=== PATIENT | male | born 1965 | race Caucasian/White ===

== ENCOUNTER 2019-11-29 11:12 | Inpatient (IN) | payer SELFPAY ==
[2019-11-29 11:33] LABS: ABSOLUTE BASOPHILS # (AUTO) 0.2 10^3/uL (0.0-0.2); ABSOLUTE LYMPHOCYTES (AUTO) 1.8 10^3/uL (0.5-4.7); ABSOLUTE MONOCYTES (AUTO) 0.8 10^3/uL (0.1-1.4); ABSOLUTE NEUT (AUTO) 12.6 10^3/uL (1.7-8.2); EOSINOPHILS % (AUTO) 0.2 % (0-6); HEMATOCRIT 45.6 % (37.9-51.0); HEMOGLOBIN 15.8 g/dL (13.5-17.0); LYMPHOCYTES % (AUTO) 11.9 % (13-45); MEAN CORPUSCULAR HEMOGLOBIN 30.3 pg (27.0-33.4); MEAN CORPUSCULAR HGB CONC 34.8 g/dL (32.0-36.0); MEAN CORPUSCULAR VOLUME 87 fl (80-97); MONOCYTES % (AUTO) 5.3 % (3-13); PLATELET COUNT 321 10^3/uL (150-450); RED BLOOD COUNT 5.23 10^6/uL (4.35-5.55); RED CELL DISTRIBUTION WIDTH 14.5 % (11.5-14.0); SEGMENTED NEUTROPHILS % (AUTO) 81.6 % (42-78); TOTAL CELLS COUNTED % (AUTO) 100 %; WHITE BLOOD COUNT 15.4 10^3/uL (4.0-10.5)
[2019-11-29] MEDS ORDERED: ONDANSETRON HCL INJ/PF 4 MG/2 ML SDV IV ONE (11:35)
[2019-11-29] MEDS ORDERED: RINGERS SOLUTION,LACTATED 1,000 ML IV ONE ×2 (11:58→16:01)
[2019-11-29] MEDS ORDERED: DICYCLOMINE HCL INJ 20 MG/2 ML AMPULE IM ONE (11:58)
--- NOTE | 2019-11-29 12:03 | ER Document Report ---
ED General - General Chief Complaint: Abdominal Pain Stated Complaint: ABDOMINAL PAIN Time Seen by Provider: 11/29/19 11:29 Primary Care Provider: LIZA LIEBERMAN MD [Primary Care Provider] - Follow up as needed Notes: 54-year-old male presents emergency department stating that he thinks he has a bowel obstruction. Patient has never had 1 of these before but he states he has not had a bowel movement since Monday. Patient states that he has developed a cramping abdominal pain over the past few days, states that he did have 2 very small little pellets of stool this morning but aside from that states that he has not had any bowel movement since Monday. States he started vomiting this morning after he took a Dulcolax. Patient does admit a history of constipation but never this badly. - Related Data Allergies/Adverse Reactions: levofloxacin [From Levaquin] Allergy (Verified 11/29/19 11:42) Past Medical History - General Information source: Patient - Social History Smoking Status: Never Smoker Chew tobacco use (# tins/day): No Frequency of alcohol use: Occasional - "To keep his kidneys flushed" Drug Abuse: None Family History: Reviewed & Not Pertinent Patient has suicidal ideation: No Patient has homicidal ideation: No Past Surgical History: Reports: Hx Abdominal Surgery Review of Systems - Review of Systems Constitutional: No symptoms reported Gastrointestinal: See HPI, Vomiting, Constipation. denies: Blood streaked bowels -: Yes All other systems reviewed and negative Physical Exam - Vital signs Vitals: Resp 29 H 11/29/19 11:20 Interpretation: Tachypneic - Notes Notes: GENERAL: Alert, interacts well. Intermittent leave vomiting clear yellow liquid, no blood, non-feculent. HEAD: Normocephalic, atraumatic EYES: Pupils equal, round and reactive to light, extraocular movements intact. ENT: Oral mucosa moist, tongue midline. NECK: Full range of motion, supple, trachea midline. LUNGS: Clear to auscultation bilaterally, no wheezes, rales or rhonchi, no respiratory distress. HEART: Regular rate and rhythm, no murmurs, gallops, rubs. ABDOMEN: Soft, nontender, nondistended, bowel sounds present in all 4 quadrants. EXTREMITIES: Moves all 4 extremities spontaneously, no edema, radial and dorsalis pedis pulses 2/4 bilaterally. No cyanosis. NEUROLOGICAL: Alert and oriented x3, normal speech. PSYCH: Anxious. SKIN: Warm, Dry, normal turgor, no rashes or lesions noted. Course - Re-evaluation Re-evalutation: 11/29/19 13:29 CBC shows leukocytosis of 15.4, CMP slight low sodium, mildly elevated glucose at 178, flu swabs negative, acute abdominal series per radiology shows what is likely mild ileus. I am still concerned for small bowel obstruction so CT scan of the abdomen and pelvis with IV and oral contrast will be ordered. 11/29/19 16:53 Abdomen/Pelvis CT 11/29/19 00:00 IMPRESSION: 1. Findings as detailed above are consistent with a small bowel obstruction. The point of transition is located in the mid abdomen (image 72 of series 3 and image 37 of series 601). 2. Other findings as detailed above. Acute Abdomen Series 11/29/19 11:57 IMPRESSION: Probable ileus with scattered air-fluid levels. Minimal small- bowel distention. Partial small bowel obstruction or early small bowel obstruction cannot be excluded. No free air. 11/29/19 17:03 NG tube will be paced after lidocaine neb for comfort. 11/29/19 17:39 Discussed the patient with Dr. Connors, he will see the patient. Asked that I speak with the surgeon as well. I did call Dr. Davis's phone who is the surgeon on-call, he is currently in surgery. He will call me back when he is done. - Vital Signs Vital signs: Temp Pulse Resp BP Pulse Ox 97.9 F 19 131/76 H 97 11/29/19 11:24 11/29/19 11:24 11/29/19 11:24 11/29/19 11:24 - Laboratory Result Diagrams: 11/29/19 11:16 11/29/19 11:16 Laboratory results interpreted by me: 11/29/19 11/29/19 11/29/19 11:16 11:16 12:30 WBC 15.4 H RDW 14.5 H Lymph % (Auto) 11.9 L Absolute Neuts (auto) 12.6 H Seg Neutrophils % 81.6 H Sodium 135.8 L BUN 22 H Glucose 178 H Calcium 10.6 H Urine Protein 100 H Discharge - Discharge Clinical Impression: Small bowel obstruction due to adhesions Condition: Good Disposition: ADMITTED INPATIENT Admitting Provider: Elia (Hospitalist) Unit Admitted: Telemetry Referrals: LIZA LIEBERMAN MD [Primary Care Provider] - Follow up as needed
[2019-11-29 12:50] LABS: ALBUMIN 4.4 g/dL (3.5-5.0); ALKALINE PHOSPHATASE 53 U/L (38-126); ANION GAP 10 (5-19); ASPARTATE AMINO TRANSFERASE 30 U/L (17-59); BILIRUBIN,TOTAL 0.5 mg/dL (0.2-1.3); BLOOD UREA NITROGEN 22 mg/dL (7-20); CALCIUM 10.6 mg/dL (8.4-10.2); CARBON DIOXIDE 23 mmol/L (22-30); CHLORIDE 103 mmol/L (98-107); GLUCOSE 178 mg/dL (75-110); POTASSIUM 4.5 mmol/L (3.6-5.0); TOTAL PROTEIN 7.6 g/dL (6.3-8.2)
[2019-11-29 12:55] LABS: A TYPE INFLUENZA AG NEGATIVE (NEGATIVE); B INFLUENZA AG NEGATIVE (NEGATIVE)
--- NOTE | 2019-11-29 13:02 | RADIOLOGY REPORT (SQ) ---
EXAM DESCRIPTION: ACUTE ABDOMEN SERIES COMPLETED DATE/TIME: 11/29/2019 12:50 pm REASON FOR STUDY: no BMx5 days, + vomiting COMPARISON: None. NUMBER OF VIEWS: Three views. TECHNIQUE: Frontal chest, supine abdomen and upright/decubitus abdomen radiographic images acquired. LIMITATIONS: None. FINDINGS: CHEST: Lungs clear of infiltrates. FREE AIR: None. No abnormal gas collections. BOWEL GAS PATTERN: There are scattered air-fluid levels. There is no significant small-bowel distent ion findings most likely represent ileus although early small bowel obstruction cannot be excluded. CALCIFICATIONS: No suspicious calcifications. HARDWARE: None in the abdomen. SOFT TISSUES: No gross mass or suggestion of organomegaly. BONES: No acute fracture. No worrisome bone lesions. OTHER: No other significant finding. IMPRESSION: Probable ileus with scattered air-fluid levels. Minimal small-bowel distention. Partia l small bowel obstruction or early small bowel obstruction cannot be excluded. No free air. TECHNICAL DOCUMENTATION: JOB ID: [id number] 2010 [employer]- All Rights Reserved Reading location - IP/workstation name: [email or web address]
[2019-11-29] MEDS ORDERED: KETOROLAC TROMETHAMINE INJ/PF 30 MG/1 ML SDV IV ONE (14:38)
[2019-11-29 14:46] LABS: APPEARANCE,URINE CLOUDY; BILIRUBIN,URINE NEGATIVE (NEGATIVE); CALCIUM OXALATE CRYSTALS,URINE FEW /HPF; COLOR,URINE AMBER; GLUCOSE, URINE NEGATIVE (NEGATIVE); KETONES,URINE NEGATIVE (NEGATIVE); LEUKOCYTE ESTERASE,URINE NEGATIVE (NEGATIVE); NITRITE,URINE NEGATIVE (NEGATIVE); PROTEIN,URINE 100 mg/dL (NEGATIVE); URINE SPECIFIC GRAVITY 1.018; UROBILINOGEN,URINE NEGATIVE mg/dL (<2.0)
--- NOTE | 2019-11-29 16:42 | RADIOLOGY REPORT (SQ) ---
EXAM DESCRIPTION: CT ABD/PELVIS WITH IV ORAL IMAGES COMPLETED DATE/TIME: 11/29/2019 4:17 pm REASON FOR STUDY: N/V, constipation, possible SBO. COMPARISON: None. TECHNIQUE: CT scan of the abdomen and pelvis performed using helical scanning technique with dynamic intravenous contrast injection. No oral contrast. Images reviewed with lung, soft tissue, and bone windows. Reconstructed coronal and sagittal MPR images reviewed. Delayed images for evaluation of the urinary system also acquired. All images stored on PACS. All CT scanners at this facility use dose modulation, iterative reconstruction, and/or weight based d osing when appropriate to reduce radiation dose to as low as reasonably achievable (ALARA). [facility]: Dose Right [facility]: CareDose [facility]: Dose Right [facility]: Teradose 4D [facility]: [place] CONTRAST TYPE AND DOSE: 100 mL Omnipaque 350- low osmolar. RENAL FUNCTION: Creatinine 1.18 mg/dl RADIATION DOSE: DLP 1663.01 mGy cm LIMITATIONS: None. FINDINGS: LOWER CHEST: There is severe atherosclerotic calcification of the coronary arteries. Ther e is no pericardial effusion, pleural effusion or basilar consolidation. LIVER: The subcentimeter focus of hyperenhancement in the hepatic dome (image 21 of series 3) could r epresent a vascular shunt or a flash filling hemangioma. The portal veins are patent. There is no h epatic mass. SPLEEN: The spleen is surgically absent. There is a splenule posterior to the pancreas that measures less than 10 mm in diameter. PANCREAS: No acute abnormality of the pancreas. GALLBLADDER: No abnormality that is apparent on CT. ADRENAL GLANDS: The mild nodular enlargement of the adrenal glands is nonspecific and could represen t adenomatous hyperplasia. RIGHT KIDNEY AND URETER: Cortical cysts that measure up to 2.5 x 2 cm. There is no solid mass, hydro nephrosis, nephrolithiasis, hydroureter or ureterolithiasis. LEFT KIDNEY AND URETER: 4 mm calculus within an upper pole calyx. There is no solid mass, hydronephr osis, hydroureter or ureterolithiasis. AORTA AND VESSELS: No aneurysm of the abdominal aorta. RETROPERITONEUM: No retroperitoneal adenopathy, hemorrhage or mass. BOWEL AND PERITONEAL CAVITY: There are several fluid-filled dilated loops of proximal small-bowel delmer t measure up to 3.6 cm in diameter with an abrupt transition between the dilated and nondilated bowel present in the mid abdomen (image 72 of series 3 and image 37 of series 601); at the point of transi tion, the bowel wall is abnormally thickened and there is stranding of the perienteric fat and locali zed ascites. In addition, there is fecalization of the bowel contents proximal to the point of trans ition consistent with delayed transit. There is no pneumatosis or free intraperitoneal air. The cecum and large bowel are normal in caliber. There is colonic diverticulosis without diverticuli tis. APPENDIX: Normal. PELVIS: The prostate gland is enlarged and heterogeneous. There is no abnormality of the urinary willi dder. ABDOMINAL WALL: There are postoperative findings in the ventral abdomen. BONES: No acute fracture or osseous lesion. OTHER: No other finding. IMPRESSION: 1. Findings as detailed above are consistent with a small bowel obstruction. The point of transition is located in the mid abdomen (image 72 of series 3 and image 37 of series 601). 2. Other findings as detailed above. TECHNICAL DOCUMENTATION: JOB ID: [id number] Quality ID # [id number]: Final reports with documentation of one or more dose reduction techniques (e.g., Au tomated exposure control, adjustment of the mA and/or kV according to patient size, use of iterative reconstruction technique) 2010 [employer] All Rights Reserved Reading location - IP/workstation name: [email or web address]
[2019-11-29] MEDS ORDERED: LIDOCAINE 2% INJ-PF (20 MG/ML) 10 ML AMPUL NEB ONE (17:02)
[2019-11-29] MEDS ORDERED: ONDANSETRON HCL INJ/PF 4 MG/2 ML SDV IV PRN (17:41)
[2019-11-29] MEDS ORDERED: ACETAMINOPHEN 650 MG SUPP.RECT PR PRN (17:41)
[2019-11-29] MEDS ORDERED: MORPHINE SULFATE 10 MG/ML INJ IV PRN (17:45)
[2019-11-29] MEDS ORDERED: DEXTROSE 50%-WATER 25 GM/50 ML DISP.SYRIN IV PRN ×2 (17:46)
[2019-11-29] MEDS ORDERED: DEXTROSE 40% GEL 15 GM TUBE PO PRN ×2 (17:46)
[2019-11-29] MEDS ORDERED: GLUCAGON,HUMAN RECOMB 1 MG INJ IM PRN (17:46)
--- NOTE | 2019-11-29 17:56 | PDOC H&P ---
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 He does not have any bowel movement for the last couple of days and he has history of constipation. Came to the emergency room with above complaints in the emergency room CT scan was done found to have a small bowel obstruction. Medical consult was called for admission and a surgical consult will be requested by the ER physician. Past Medical History EENT Medical History: Reports: None Neurological Medical History: Reports: None Endocrine Medical History: Reports: Diabetes Mellitus Type 2 Malignancy Medical History: Reports: Other - Hodgkin's lymphoma GI Medical History: Reports: None Psychiatric Medical History: Reports: None Traumatic Medical History: Reports: None Hematology: Reports: None Infectious Medical History: Reports: None Past Surgical History Past Surgical History: Reports: Splenectomy, Other - Splenectomy Social History Smoking Status: Never Smoker Electronic Cigarette use?: No Frequency of Alcohol Use: Rare Hx Recreational Drug Use: No Hx Prescription Drug Abuse: No - Advance Directive Resuscitation Status: Full Code Family History Family History: Reviewed & Not Pertinent Parental Family History Reviewed: Yes - Hypertension diabetes mellitus Children Family History Reviewed: Yes Sibling(s) Family History Reviewed.: Yes Medication/Allergy Allergies/Adverse Reactions: levofloxacin [From Levaquin] Allergy (Verified 11/29/19 11:42) Review of Systems Constitutional: ABSENT: fatigue, fever(s), headache(s), weakness Eyes: ABSENT: visual disturbances Ears: ABSENT: hearing changes Nose, Mouth, and Throat: ABSENT: sore throat Cardiovascular: ABSENT: dyspnea on exertion, orthropnea, palpitations Respiratory: ABSENT: dyspnea, hemoptysis Gastrointestinal: PRESENT: abdominal pain, constipation, nausea, vomiting. ABSENT: heartburn Genitourinary: ABSENT: dysuria, hematuria Musculoskeletal: ABSENT: joint swelling Integumentary: ABSENT: rash, wounds Neurological: ABSENT: abnormal gait, abnormal speech, confusion, dizziness, focal weakness, syncope Psychiatric: ABSENT: anxiety, depression, homidical ideation, suicidal ideation Physical Exam Vital Signs: Temp Pulse Resp BP Pulse Ox 97.9 F 19 131/76 H 97 11/29/19 11:24 11/29/19 11:24 11/29/19 11:24 11/29/19 11:24 Intake & Output 11/28/19 11/29/19 11/30/19 06:59 06:59 06:59 Intake Total 1000 Balance 1000 Weight 97.522 kg General appearance: PRESENT: mild distress, well-developed Head exam: PRESENT: atraumatic Eye exam: PRESENT: PERRLA Ear exam: PRESENT: normal external ear exam Mouth exam: PRESENT: neck supple Neck exam: ABSENT: carotid bruit, JVD, lymphadenopathy, thyromegaly Respiratory exam: PRESENT: decreased breath sounds Cardiovascular exam: PRESENT: systolic murmur, tachycardia GI/Abdominal exam: PRESENT: hyperactive bowel sounds, tenderness, other - Previous surgical scar over the abdomen. ABSENT: guarding, rigid Rectal exam: PRESENT: deferred Neurological exam: PRESENT: alert, awake, oriented to person, oriented to place, oriented to time, oriented to situation, CN II-XII grossly intact. ABSENT: motor sensory deficit Psychiatric exam: PRESENT: appropriate affect, normal mood. ABSENT: homicidal ideation, suicidal ideation Results Laboratory Results: 11/29/19 11:16 11/29/19 11:16 11/29/19 11/29/19 11/29/19 11:16 11:16 12:30 WBC 15.4 H RBC 5.23 Hgb 15.8 Hct 45.6 MCV 87 MCH 30.3 MCHC 34.8 RDW 14.5 H Plt Count 321 Seg Neutrophils % 81.6 H Sodium 135.8 L Potassium 4.5 Chloride 103 Carbon Dioxide 23 Anion Gap 10 BUN 22 H Creatinine 1.18 Est GFR ( Amer) > 60 Glucose 178 H Calcium 10.6 H Total Bilirubin 0.5 AST 30 Alkaline Phosphatase 53 Total Protein 7.6 Albumin 4.4 Lipase 141.8 Urine Color MAN Urine Appearance CLOUDY Urine pH 7.0 Ur Specific [place] 1.018 Urine Protein 100 H Urine Glucose (UA) NEGATIVE Urine Ketones NEGATIVE Urine Blood NEGATIVE Urine Nitrite NEGATIVE Ur Leukocyte Esterase NEGATIVE Urine WBC (Auto) 4 Urine RBC (Auto) 3 Impressions: Abdomen/Pelvis CT 11/29/19 00:00 IMPRESSION: 1. Findings as detailed above are consistent with a small bowel obstruction. The point of transition is located in the mid abdomen (image 72 of series 3 and image 37 of series 601). 2. Other findings as detailed above. Acute Abdomen Series 11/29/19 11:57 IMPRESSION: Probable ileus with scattered air-fluid levels. Minimal small- bowel distention. Partial small bowel obstruction or early small bowel obstruction cannot be excluded. No free air. Assessment and Plan - Diagnosis (1) Small bowel obstruction Is this a current diagnosis for this admission?: Yes Plan: 11/29/2019-patient is going to be admitted to medical floor with telemetry as inpatient with a diagnosis of small bowel obstruction. Dr. Angel closely try to reach Dr. barney but he is in the surgery. pt Will be n.p.o., with NG tube placement. GI prophylaxis and DVT prophylaxis initiated. Started on IV morphine every 4 hours as needed for pain. Daily labs will be requested. (2) HTN (hypertension) Is this a current diagnosis for this admission?: No Plan: 11/29/2019-patient has history of chronic essential hypertension to start him on IV hydralazine 10 mg every 6 hours as needed for systolic blood pressure more than 160. (3) Diabetes Is this a current diagnosis for this admission?: No Plan: 11/29/2019-patient has history of type 2 diabetes mellitus he is n.p.o. at this time started on insulin sliding scale every 6 hours. Hypoglycemia protocol will be implemented. (4) Hodgkin lymphoma Is this a current diagnosis for this admission?: No Plan: 11/29/2019-patient given the history of Hodgkin's lymphoma status post treatment including splenectomy and radiation , in remission. (5) Hypothyroidism Is this a current diagnosis for this admission?: No Plan: 11/29/2019-patient has history of total thyroidectomy causing surgical induced hypothyroidism.
--- NOTE | 2019-11-29 19:05 | PDOC CONSULTATION ---
Consultation Consult Date: 11/29/19 Provider Consulted: VERONICA ROJAS History of Present Illness Admission Date/PCP: LIZA LIEBERMAN MD Patient complains of: Abdominal pain and nausea and vomiting History of Present Illness: ROSEMARY MILLAN is a 54 year old male with history of exploratory laparotomy with splenectomy via large midline incision in his youth for Hodgkin's lymphoma, as well as radiation therapy to neck chest and abdomen, presenting with several day history of constipation followed by crampy abdominal pain in the last couple of days with finally multiple episodes of nausea and vomiting today. Patient has had small bowel movements but feels bloated with nausea and crampy abdomina l pain. No fever. No prior history of bowel obstruction. Past Medical History Cardiac Medical History: Reports: Hyperlipidema, Hypertension EENT Medical History: Reports: None Neurological Medical History: Reports: None Endocrine Medical History: Reports: Diabetes Mellitus Type 2 Malignancy Medical History: Reports: Other - Hodgkin's lymphoma GI Medical History: Reports: None Psychiatric Medical History: Reports: None Traumatic Medical History: Reports: None Hematology: Reports: None Infectious Medical History: Reports: None Past Surgical History Past Surgical History: Reports: Splenectomy, Other - Splenectomy Social History Smoking Status: Never Smoker Electronic Cigarette use?: No Frequency of Alcohol Use: Social Hx Recreational Drug Use: No Hx Prescription Drug Abuse: Yes - Patient does take prescription oxycodone for chronic pain and insomnia. - Advance Directive Resuscitation Status: Full Code Family History Family History: Reviewed & Not Pertinent Parental Family History Reviewed: No Children Family History Reviewed: No Sibling(s) Family History Reviewed.: No Medication/Allergy Home Medications: Fenofibrate Nanocrystallized [Fenofibrate] 145 mg PO QHS 11/29/19 Levothyroxine Sodium [Levoxyl] 88 mcg PO Q6AM 11/29/19 Levothyroxine Sodium [Synthroid 0.1 mg Tablet] 0.1 mg PO Q6AM 11/29/19 Lisinopril 20 mg PO DAILY 11/29/19 Metformin HCl [Glucophage 500 mg Tablet] 1,000 mg PO BIDACBS 11/29/19 Metoprolol Tartrate [Lopressor 25 mg Tablet] 25 mg PO DAILY 11/29/19 Allergies/Adverse Reactions: levofloxacin [From Levaquin] Allergy (Verified 11/29/19 11:42) Review of Systems All systems: reviewed and no additional remarkable complaints except as stated Cardiovascular: PRESENT: other - Patient states that his heart rate always runs high in the low 100s. Gastrointestinal: PRESENT: as per HPI Physical Exam Vital Signs: Temp Pulse Resp BP Pulse Ox 97.9 F 19 131/76 H 97 11/29/19 11:24 11/29/19 11:24 11/29/19 11:24 11/29/19 11:24 Intake & Output 11/28/19 11/29/19 11/30/19 06:59 06:59 06:59 Intake Total 1000 Balance 1000 Weight 97.522 kg General appearance: PRESENT: no acute distress, cooperative Eye exam: PRESENT: conjunctiva pink Respiratory exam: PRESENT: clear to auscultation bharath Cardiovascular exam: PRESENT: tachycardia - With systolic murmur GI/Abdominal exam: PRESENT: other - Soft, distended, nontender to palpation. Long midline abdominal scar that is well-healed with multiple small fascial defects but no evidence of incarceration. High-pitched bowel sounds intermittently. Neurological exam: PRESENT: alert, awake Psychiatric exam: PRESENT: appropriate affect Results Laboratory Results: 11/29/19 11:16 11/29/19 11:16 11/29/19 11/29/19 11/29/19 11:16 11:16 12:30 WBC 15.4 H RBC 5.23 Hgb 15.8 Hct 45.6 MCV 87 MCH 30.3 MCHC 34.8 RDW 14.5 H Plt Count 321 Seg Neutrophils % 81.6 H Sodium 135.8 L Potassium 4.5 Chloride 103 Carbon Dioxide 23 Anion Gap 10 BUN 22 H Creatinine 1.18 Est GFR ( Amer) > 60 Glucose 178 H Calcium 10.6 H Total Bilirubin 0.5 AST 30 Alkaline Phosphatase 53 Total Protein 7.6 Albumin 4.4 Lipase 141.8 Urine Color MAN Urine Appearance CLOUDY Urine pH 7.0 Ur Specific [place] 1.018 Urine Protein 100 H Urine Glucose (UA) NEGATIVE Urine Ketones NEGATIVE Urine Blood NEGATIVE Urine Nitrite NEGATIVE Ur Leukocyte Esterase NEGATIVE Urine WBC (Auto) 4 Urine RBC (Auto) 3 Impressions: Abdomen/Pelvis CT 11/29/19 00:00 IMPRESSION: 1. Findings as detailed above are consistent with a small bowel obstruction. The point of transition is located in the mid abdomen (image 72 of series 3 and image 37 of series 601). 2. Other findings as detailed above. Acute Abdomen Series 11/29/19 11:57 IMPRESSION: Probable ileus with scattered air-fluid levels. Minimal small- bowel distention. Partial small bowel obstruction or early small bowel obstruction cannot be excluded. No free air. Assessment & Plan - Diagnosis (1) Small bowel obstruction Is this a current diagnosis for this admission?: Yes Plan: Small bowel obstruction likely due to adhesive disease. I had a long discussion with the patient concerning the risk and benefits of conservative management versus immediate surgery. I am concerned that he has leukocytosis and tachycardia and a CT scan demonstrating a clear transition point with some inflammatory changes and thickened bowel wall: Thus, I have recommended to the patient surgery. I have also discussed the skin benefits of conservative nonsurgical management but I feel that this latter option is more risky with the above mentioned findings. He understands that with conservative management he incurred the risk of bowel compromise with resultant higher risk of mortality/morbidity. He also understands that there are technical risk involved with surgery including risk of intestinal injury, bleeding, hernia formation, recurrent bowel obstruction. Patient will consider my recommendation for surgery and get back to me. If the chooses conservative management surgical service will follow along with the medical service. Patient pending NG tube decompression. We will check abdominal x-rays in the morning.
--- NOTE | 2019-11-29 19:57 | PDOC PROGRESS REPORT ---
Subjective Progress Note for:: 11/29/19 Reason For Visit: SMALL BOWEL OB Physical Exam Vital Signs: Temp Pulse Resp BP Pulse Ox 97.9 F 26 H 159/96 H 96 11/29/19 11:24 11/29/19 19:33 11/29/19 19:33 11/29/19 19:33 Intake & Output 11/28/19 11/29/19 11/30/19 06:59 06:59 06:59 Intake Total 1999 Balance 1999 Weight 97.522 kg Results Laboratory Results: 11/29/19 11:16 11/29/19 11:16 11/29/19 11/29/19 11/29/19 11:16 11:16 12:30 WBC 15.4 H RBC 5.23 Hgb 15.8 Hct 45.6 MCV 87 MCH 30.3 MCHC 34.8 RDW 14.5 H Plt Count 321 Seg Neutrophils % 81.6 H Sodium 135.8 L Potassium 4.5 Chloride 103 Carbon Dioxide 23 Anion Gap 10 BUN 22 H Creatinine 1.18 Est GFR ( Amer) > 60 Glucose 178 H Calcium 10.6 H Total Bilirubin 0.5 AST 30 Alkaline Phosphatase 53 Total Protein 7.6 Albumin 4.4 Lipase 141.8 Urine Color MAN Urine Appearance CLOUDY Urine pH 7.0 Ur Specific [place] 1.018 Urine Protein 100 H Urine Glucose (UA) NEGATIVE Urine Ketones NEGATIVE Urine Blood NEGATIVE Urine Nitrite NEGATIVE Ur Leukocyte Esterase NEGATIVE Urine WBC (Auto) 4 Urine RBC (Auto) 3 Impressions: Abdomen/Pelvis CT 11/29/19 00:00 IMPRESSION: 1. Findings as detailed above are consistent with a small bowel obstruction. The point of transition is located in the mid abdomen (image 72 of series 3 and image 37 of series 601). 2. Other findings as detailed above. Acute Abdomen Series 11/29/19 11:57 IMPRESSION: Probable ileus with scattered air-fluid levels. Minimal small- bowel distention. Partial small bowel obstruction or early small bowel obstruction cannot be excluded. No free air. Assessment & Plan - Diagnosis (1) Small bowel obstruction Is this a current diagnosis for this admission?: Yes Plan: Patient has decided to undergo surgery. He understands the risk and benefits of the surgery. In light of his persistent tachycardia, leukocytosis, CT scan findings, I believe this is the right decision.
[2019-11-29] MEDS ORDERED: BUPIVACAINE HCL 0.25 % INJ/PF (2.5 MG/1 ML) 30 ML VIAL ONE (21:02)
[2019-11-29] MEDS: HYDRALAZINE HCL INJ/PF 20 MG/1 ML SDV IV SCH (21:18)
[2019-11-29] MEDS ORDERED: FENTANYL CITRATE INJ/PF 250 MCG/5 ML AMPULE ONE (21:38)
[2019-11-29] MEDS ORDERED: ONDANSETRON HCL INJ/PF 4 MG/2 ML SDV ONE (21:38)
[2019-11-29] MEDS ORDERED: PROPOFOL INJ 200 MG/20 ML VIAL IV ONE (21:38)
[2019-11-29] MEDS ORDERED: HYDROMORPHONE HCL INJ/PF 2 MG/ML AMPULE ONE (21:38)
[2019-11-29] MEDS ORDERED: MIDAZOLAM 2 MG/2 ML INJ ONE (21:38)
--- NOTE | 2019-11-29 22:25 | PDOC PROGRESS REPORT ---
Subjective Progress Note for:: 11/29/19 Subjective:: Patient was brought to the preoperative holding area and he noted that his abdomen feels better with less abdominal pain and he has been passing copious amount of gas. Reason For Visit: SMALL BOWEL OB Physical Exam Vital Signs: Temp Pulse Resp BP Pulse Ox 98.4 F 115 H 20 128/80 H 95 11/29/19 21:57 11/29/19 21:57 11/29/19 21:57 11/29/19 21:57 11/29/19 21:57 Intake & Output 11/28/19 11/29/19 11/30/19 06:59 06:59 06:59 Intake Total 1999 Balance 1999 Weight 97.522 kg GI/Abdominal exam: PRESENT: other - Soft, nondistended, nontender to palpation. Results Laboratory Results: 11/29/19 11:16 11/29/19 11:16 11/29/19 11/29/19 11/29/19 11:16 11:16 12:30 WBC 15.4 H RBC 5.23 Hgb 15.8 Hct 45.6 MCV 87 MCH 30.3 MCHC 34.8 RDW 14.5 H Plt Count 321 Seg Neutrophils % 81.6 H Sodium 135.8 L Potassium 4.5 Chloride 103 Carbon Dioxide 23 Anion Gap 10 BUN 22 H Creatinine 1.18 Est GFR ( Amer) > 60 Glucose 178 H Calcium 10.6 H Total Bilirubin 0.5 AST 30 Alkaline Phosphatase 53 Total Protein 7.6 Albumin 4.4 Lipase 141.8 Urine Color MAN Urine Appearance CLOUDY Urine pH 7.0 Ur Specific [place] 1.018 Urine Protein 100 H Urine Glucose (UA) NEGATIVE Urine Ketones NEGATIVE Urine Blood NEGATIVE Urine Nitrite NEGATIVE Ur Leukocyte Esterase NEGATIVE Urine WBC (Auto) 4 Urine RBC (Auto) 3 Impressions: Abdomen/Pelvis CT 11/29/19 00:00 IMPRESSION: 1. Findings as detailed above are consistent with a small bowel obstruction. The point of transition is located in the mid abdomen (image 72 of series 3 and image 37 of series 601). 2. Other findings as detailed above. Acute Abdomen Series 11/29/19 11:57 IMPRESSION: Probable ileus with scattered air-fluid levels. Minimal small- bowel distention. Partial small bowel obstruction or early small bowel obstruction cannot be excluded. No free air. Assessment & Plan - Diagnosis (1) Small bowel obstruction Is this a current diagnosis for this admission?: Yes Plan: Patient clearly has had improvement of his symptoms and his exam. Therefore will hold off surgery. We will continue NG tube decompression overnight and obtain abdominal x-rays in the morning. But it appears that his bowel obstruction is resolving.
[2019-11-29] MEDS: INSULIN REG, HUMAN 100 UNIT/ML 3 ML VIAL (PYX) SUBCUT SCH (22:46)
[2019-11-29] MEDS: HEPARIN SOD (PORCINE) 5,000 UNIT/ML 1 ML VIAL SUBCUT SCH (22:47)
[2019-11-29] MEDS: PANTOPRAZOLE SODIUM 40 MG VIAL IV SCH (22:53)
[2019-11-29] MEDS: NORMAL SALINE 1000 ML 1,000 ML IV PRN (23:01)
[2019-11-30] MEDS: INSULIN REG, HUMAN 100 UNIT/ML 3 ML VIAL (PYX) SUBCUT SCH ×3 (01:23→12:39)
[2019-11-30] MEDS: HYDRALAZINE HCL INJ/PF 20 MG/1 ML SDV IV SCH ×4 (03:01→12:53)
[2019-11-30] MEDS: HEPARIN SOD (PORCINE) 5,000 UNIT/ML 1 ML VIAL SUBCUT SCH ×2 (06:13→14:04)
[2019-11-30 06:18] LABS: ABSOLUTE BASOPHILS # (AUTO) 0.1 10^3/uL (0.0-0.2); ABSOLUTE EOSINOPHILS # (AUTO) 0.3 10^3/uL (0.0-0.6); ABSOLUTE MONOCYTES (AUTO) 1.1 10^3/uL (0.1-1.4); ABSOLUTE NEUT (AUTO) 6.5 10^3/uL (1.7-8.2); BASOPHILS % (AUTO) 0.9 % (0-2); EOSINOPHILS % (AUTO) 2.6 % (0-6); HEMATOCRIT 40.6 % (37.9-51.0); LYMPHOCYTES % (AUTO) 27.3 % (13-45); MEAN CORPUSCULAR HEMOGLOBIN 30.3 pg (27.0-33.4); MEAN CORPUSCULAR HGB CONC 34.5 g/dL (32.0-36.0); MEAN CORPUSCULAR VOLUME 88 fl (80-97); MONOCYTES % (AUTO) 10.2 % (3-13); PLATELET COUNT 290 10^3/uL (150-450); RED BLOOD COUNT 4.61 10^6/uL (4.35-5.55); RED CELL DISTRIBUTION WIDTH 14.5 % (11.5-14.0); TOTAL CELLS COUNTED % (AUTO) 100 %
[2019-11-30 06:41] LABS: ALBUMIN 3.4 g/dL (3.5-5.0); ALKALINE PHOSPHATASE 39 U/L (38-126); ANION GAP 5 (5-19); ASPARTATE AMINO TRANSFERASE 22 U/L (17-59); BILIRUBIN,TOTAL 0.6 mg/dL (0.2-1.3); BLOOD UREA NITROGEN 17 mg/dL (7-20); CALCIUM 9.2 mg/dL (8.4-10.2); CARBON DIOXIDE 24 mmol/L (22-30); CHLORIDE 106 mmol/L (98-107); CHOLESTEROL 121.41 mg/dL (0-200); GLUCOSE 110 mg/dL (75-110); POTASSIUM 4.2 mmol/L (3.6-5.0); TOTAL PROTEIN 5.9 g/dL (6.3-8.2); TRIGLYCERIDES 103 mg/dL (<150)
[2019-11-30 06:52] LABS: DIRECT LDL 90 mg/dL (<100)
[2019-11-30] MEDS: NORMAL SALINE 1000 ML 1,000 ML IV PRN (07:16)
--- NOTE | 2019-11-30 08:16 | RADIOLOGY REPORT (SQ) ---
EXAM DESCRIPTION: ABDOMEN 2 VIEWS IMAGES COMPLETED DATE/TIME: 11/30/2019 8:04 am REASON FOR STUDY: Follow-up small bowel obstruction COMPARISON: CT abdomen pelvis 11/29/2019 Three-way abdomen series 11/29/2019 NUMBER OF VIEWS: Two views. TECHNIQUE: Supine and upright radiographic images of the abdomen acquired. LIMITATIONS: None. FINDINGS: FREE AIR: No subdiaphragmatic free air. Bibasilar atelectasis is present LUNG BASES: Bibasilar atelectasis BOWEL GAS PATTERN: Nasogastric tube decompresses the stomach. Air-fluid levels seen in the small bow el are no longer identified. Oral contrast given for CT exam 11/29/2019 1610 hours is now seen in nondistended colon CALCIFICATIONS: No suspicious calcifications. SOFT TISSUES: No gross mass or suggestion of organomegaly. HARDWARE: Nasogastric tube BONES: No acute fracture. No worrisome bone lesions. OTHER: No other significant finding. IMPRESSION: Nasogastric tube in place. Stomach and small bowel are decompressed Oral contrast given for CT yesterday is now in the colon TECHNICAL DOCUMENTATION: JOB ID: [id number] [employer]- All Rights Reserved Reading location - IP/workstation name: [id number]
--- NOTE | 2019-11-30 09:26 | PDOC PROGRESS REPORT ---
Subjective Progress Note for:: 11/30/19 Reason For Visit: SMALL BOWEL OB Physical Exam Vital Signs: Temp Pulse Resp BP Pulse Ox 97.6 F 61 18 153/83 H 95 11/30/19 08:00 11/30/19 08:00 11/30/19 08:00 11/30/19 08:00 11/30/19 08:00 Intake & Output 11/29/19 11/30/19 12/01/19 06:59 06:59 06:59 Intake Total 2000 1000 Output Total 1100 Balance 900 1000 Weight 93 kg General appearance: PRESENT: no acute distress GI/Abdominal exam: PRESENT: other - Minimal drainage from nasogastric tube; abdomen examined, scaphoid no peritoneal signs no rigidity. Results Laboratory Results: 11/30/19 06:00 11/30/19 06:00 11/29/19 11/29/19 11/29/19 11:16 11:16 12:30 WBC 15.4 H RBC 5.23 Hgb 15.8 Hct 45.6 MCV 87 MCH 30.3 MCHC 34.8 RDW 14.5 H Plt Count 321 Seg Neutrophils % 81.6 H Sodium 135.8 L Potassium 4.5 Chloride 103 Carbon Dioxide 23 Anion Gap 10 BUN 22 H Creatinine 1.18 Est GFR ( Amer) > 60 Glucose 178 H Calcium 10.6 H Magnesium Total Bilirubin 0.5 AST 30 Alkaline Phosphatase 53 Total Protein 7.6 Albumin 4.4 Triglycerides Cholesterol LDL Cholesterol Direct VLDL Cholesterol HDL Cholesterol Lipase 141.8 TSH Urine Color MAN Urine Appearance CLOUDY Urine pH 7.0 Ur Specific [place] 1.018 Urine Protein 100 H Urine Glucose (UA) NEGATIVE Urine Ketones NEGATIVE Urine Blood NEGATIVE Urine Nitrite NEGATIVE Ur Leukocyte Esterase NEGATIVE Urine WBC (Auto) 4 Urine RBC (Auto) 3 11/30/19 11/30/19 11/30/19 06:00 06:00 06:00 WBC 11.0 H RBC 4.61 Hgb 14.0 Hct 40.6 MCV 88 MCH 30.3 MCHC 34.5 RDW 14.5 H Plt Count 290 Seg Neutrophils % 59.0 Sodium 135.3 L Potassium 4.2 Chloride 106 Carbon Dioxide 24 Anion Gap 5 BUN 17 Creatinine 0.60 Est GFR ( Amer) > 60 Glucose 110 Calcium 9.2 Magnesium 1.8 Total Bilirubin 0.6 AST 22 Alkaline Phosphatase 39 Total Protein 5.9 L Albumin 3.4 L Triglycerides 103 Cholesterol 121.41 LDL Cholesterol Direct 90 VLDL Cholesterol 21.0 HDL Cholesterol 30 L Lipase 85.9 TSH 0.14 L Urine Color Urine Appearance Urine pH Ur Specific [place] Urine Protein Urine Glucose (UA) Urine Ketones Urine Blood Urine Nitrite Ur Leukocyte Esterase Urine WBC (Auto) Urine RBC (Auto) Impressions: Abdomen/Pelvis CT 11/29/19 00:00 IMPRESSION: 1. Findings as detailed above are consistent with a small bowel obstruction. The point of transition is located in the mid abdomen (image 72 of series 3 and image 37 of series 601). 2. Other findings as detailed above. Acute Abdomen Series 11/29/19 11:57 IMPRESSION: Probable ileus with scattered air-fluid levels. Minimal small- bowel distention. Partial small bowel obstruction or early small bowel obstruction cannot be excluded. No free air. Abdomen X-Ray 11/30/19 07:00 IMPRESSION: Nasogastric tube in place. Stomach and small bowel are decompressed Oral contrast given for CT yesterday is now in the colon Assessment & Plan - Diagnosis (1) Small bowel obstruction Plan: Impression: Likely ileus, no evidence of small bowel obstruction based on clinical resolution of symptoms, and presence of CT contrast in colon this morning. Recommendations: 1. We will DC nasogastric tube 2. Will start diet, advance and likely discharge patient home later today. - Time Time Spent: 30 to 50 Minutes
[2019-11-30] MEDS: PANTOPRAZOLE SODIUM 40 MG VIAL IV SCH (09:30)
[2019-11-30] MEDS ORDERED: NORMAL SALINE 1000 ML 1,000 ML IV PRN (11:34)
--- NOTE | 2019-11-30 11:37 | PDOC PROGRESS REPORT ---
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 He does not have any bowel movement for the last couple of days and he has history of constipation. Came to the emergency room with above complaints in th e emergency room CT scan was done found to have a small bowel obstruction. Medical consult was called for admission and a surgical consult will be requested by the ER physician. [id number]-old male admitted with history of abdominal pain and a CT scan shows small bowel obstruction surgical consult was done. The recommendation today is to remove the NG tube and allow him to have a clear liquids. Patient is doing well. Abdominal pain is resolving. Reason For Visit: SMALL BOWEL OB Physical Exam Vital Signs: Temp Pulse Resp BP Pulse Ox 97.6 F 61 18 153/83 H 95 11/30/19 08:00 11/30/19 08:00 11/30/19 08:00 11/30/19 08:00 11/30/19 08:00 Intake & Output 11/29/19 11/30/19 12/01/19 06:59 06:59 06:59 Intake Total 2000 1000 Output Total 1100 Balance 900 1000 Weight 93 kg General appearance: PRESENT: no acute distress, well-developed Head exam: PRESENT: atraumatic Eye exam: PRESENT: PERRLA Mouth exam: PRESENT: moist, tongue midline Teeth exam: PRESENT: poor dentation Neck exam: ABSENT: carotid bruit, JVD, lymphadenopathy, thyromegaly Respiratory exam: PRESENT: decreased breath sounds Cardiovascular exam: PRESENT: RRR. ABSENT: diastolic murmur, rubs, systolic murmur Pulses: PRESENT: normal dorsalis pedis pul GI/Abdominal exam: PRESENT: normal bowel sounds, soft. ABSENT: distended, guarding, mass, organolmegaly, rebound, tenderness Rectal exam: PRESENT: deferred Extremities exam: PRESENT: calf tenderness Neurological exam: PRESENT: alert, awake, oriented to person, oriented to place, oriented to time, oriented to situation, CN II-XII grossly intact. ABSENT: motor sensory deficit Psychiatric exam: PRESENT: appropriate affect, normal mood. ABSENT: homicidal ideation, suicidal ideation Results Laboratory Results: 11/30/19 06:00 11/30/19 06:00 11/29/19 11/29/19 11/29/19 11:16 11:16 12:30 WBC 15.4 H RBC 5.23 Hgb 15.8 Hct 45.6 MCV 87 MCH 30.3 MCHC 34.8 RDW 14.5 H Plt Count 321 Seg Neutrophils % 81.6 H Sodium 135.8 L Potassium 4.5 Chloride 103 Carbon Dioxide 23 Anion Gap 10 BUN 22 H Creatinine 1.18 Est GFR ( Amer) > 60 Glucose 178 H Calcium 10.6 H Magnesium Total Bilirubin 0.5 AST 30 Alkaline Phosphatase 53 Total Protein 7.6 Albumin 4.4 Triglycerides Cholesterol LDL Cholesterol Direct VLDL Cholesterol HDL Cholesterol Lipase 141.8 TSH Urine Color MAN Urine Appearance CLOUDY Urine pH 7.0 Ur Specific [place] 1.018 Urine Protein 100 H Urine Glucose (UA) NEGATIVE Urine Ketones NEGATIVE Urine Blood NEGATIVE Urine Nitrite NEGATIVE Ur Leukocyte Esterase NEGATIVE Urine WBC (Auto) 4 Urine RBC (Auto) 3 11/30/19 11/30/19 11/30/19 06:00 06:00 06:00 WBC 11.0 H RBC 4.61 Hgb 14.0 Hct 40.6 MCV 88 MCH 30.3 MCHC 34.5 RDW 14.5 H Plt Count 290 Seg Neutrophils % 59.0 Sodium 135.3 L Potassium 4.2 Chloride 106 Carbon Dioxide 24 Anion Gap 5 BUN 17 Creatinine 0.60 Est GFR ( Amer) > 60 Glucose 110 Calcium 9.2 Magnesium 1.8 Total Bilirubin 0.6 AST 22 Alkaline Phosphatase 39 Total Protein 5.9 L Albumin 3.4 L Triglycerides 103 Cholesterol 121.41 LDL Cholesterol Direct 90 VLDL Cholesterol 21.0 HDL Cholesterol 30 L Lipase 85.9 TSH 0.14 L Urine Color Urine Appearance Urine pH Ur Specific [place] Urine Protein Urine Glucose (UA) Urine Ketones Urine Blood Urine Nitrite Ur Leukocyte Esterase Urine WBC (Auto) Urine RBC (Auto) Impressions: Abdomen/Pelvis CT 11/29/19 00:00 IMPRESSION: 1. Findings as detailed above are consistent with a small bowel obstruction. The point of transition is located in the mid abdomen (image 72 of series 3 and image 37 of series 601). 2. Other findings as detailed above. Acute Abdomen Series 11/29/19 11:57 IMPRESSION: Probable ileus with scattered air-fluid levels. Minimal small- bowel distention. Partial small bowel obstruction or early small bowel obstruction cannot be excluded. No free air. Abdomen X-Ray 11/30/19 07:00 IMPRESSION: Nasogastric tube in place. Stomach and small bowel are decompressed Oral contrast given for CT yesterday is now in the colon Assessment and Plan - Diagnosis (1) Small bowel obstruction Is this a current diagnosis for this admission?: Yes Plan: 11/29/2019-patient is going to be admitted to medical floor with telemetry as inpatient with a diagnosis of small bowel obstruction. Dr. Angel closely try to reach Dr. barney but he is in the surgery. pt Will be n.p.o., with NG tube placement. GI prophylaxis and DVT prophylaxis initiated. Started on IV morphine every 4 hours as needed for pain. Daily labs will be requested. 05/01/2020-patient admitted with small bowel obstruction his abdominal pain is much improved. NG tube was removed patient is allowed to have a clear liquids. Surgery on board. (2) HTN (hypertension) Is this a current diagnosis for this admission?: No Plan: 11/29/2019-patient has history of chronic essential hypertension to start him on IV hydralazine 10 mg every 6 hours as needed for systolic blood pressure more than 160. 11/30/2019-blood pressure today is 157/70. Started on a clear liquids by surgical team today to restart home medications. (3) Diabetes Qualifiers: Diabetes mellitus type: type 2 Is this a current diagnosis for this admission?: No Plan: 11/29/2019-patient has history of type 2 diabetes mellitus he is n.p.o. at this time started on insulin sliding scale every 6 hours. Hypoglycemia protocol will be implemented. 11/30/2019-patient has history of type 2 diabetes mellitus, presently on clear liquids. Plan is to change the insulin sliding scale to before meals and at bedtime. (4) Hodgkin lymphoma Is this a current diagnosis for this admission?: No (5) Hypothyroidism Is this a current diagnosis for this admission?: No
[2019-11-30] MEDS ORDERED: LISINOPRIL 10 MG TABLET PO SCH (12:00)
[2019-11-30 12:34] VITALS: BP 154/86
[2019-11-30] MEDS ORDERED: METOPROLOL TARTRATE 25 MG TABLET PO SCH (18:00)
[2019-11-30] MEDS ORDERED: FENOFIBRATE NANOCRYSTALLIZED 145 MG TABLET PO SCH (22:00)
[2019-12-01] MEDS ORDERED: LEVOTHYROXINE SODIUM 0.088 MG TABLET PO SCH (06:00)
--- NOTE | 2019-12-01 09:43 | PDOC DISCHARGE SUMMARY ---
Impression - Admit/DC Date/PCP Admission Date/Primary Care Provider: 11/29/19 19:02 LIZA LIEBERMAN MD Discharge Date: 11/30/19 - Discharge Diagnosis (1) Small bowel obstruction Is this a current diagnosis for this admission?: Yes (2) HTN (hypertension) Is this a current diagnosis for this admission?: No (3) Diabetes Is this a current diagnosis for this admission?: No (4) Hodgkin lymphoma Is this a current diagnosis for this admission?: No (5) Hypothyroidism Is this a current diagnosis for this admission?: No - Assessment Summary: (1) Small bowel obstruction Is this a current diagnosis for this admission?: Yes Plan: 11/29/2019-patient is going to be admitted to medical floor with telemetry as inpatient with a diagnosis of small bowel obstruction. Dr. Angel closely try to reach Dr. barney but he is in the surgery. pt Will be n.p.o., with NG tube placement. GI prophylaxis and DVT prophylaxis initiated. Started on IV morphine every 4 hours as needed for pain. Daily labs will be requested. 11/30/2019-patient admitted with small bowel obstruction his abdominal pain is much improved. NG tube was removed patient is allowed to have a clear liquids. Surgery on board. 12/01/2019-patient admitted with small bowel obstruction resolved with conservative management as per Dr. Tommy Sanders cleared him to go to home. (2) HTN (hypertension) Is this a current diagnosis for this admission?: No Plan: 11/29/2019-patient has history of chronic essential hypertension to start him on IV hydralazine 10 mg every 6 hours as needed for systolic blood pressure more than 160. 11/30/2019-blood pressure today is 157/70. Started on a clear liquids by surgical team today to restart home medications. 05/02/2020-blood pressure today is 154/86 patient advised to continue home medications. (3) Diabetes Qualifiers: Diabetes mellitus type: type 2 Is this a current diagnosis for this admission?: No Plan: 11/29/2019-patient has history of type 2 diabetes mellitus he is n.p.o. at this time started on insulin sliding scale every 6 hours. Hypoglycemia protocol will be implemented. 11/30/2019-patient has history of type 2 diabetes mellitus, presently on clear liquids. Plan is to change the insulin sliding scale to before meals and at bedtime. 12/01/2019-patient has history of type 2 diabetes mellitus surgical consult was done during the hospital stay he was cleared to go home patient was advised to continue the diabetic medications at home. (4) Hodgkin lymphoma Is this a current diagnosis for this admission?: No (5) Hypothyroidism Is this a current diagnosis for this admission?: No - Additional Information Resuscitation Status: Full Code Discharge Diet: Full Liquids Discharge Activity: Activity As Tolerated Referrals: LIZA LIEBERMAN MD [Primary Care Provider] - Follow up as needed Home Medications: Fenofibrate Nanocrystallized [Fenofibrate] 145 mg PO QHS 11/29/19 Levothyroxine Sodium [Levoxyl] 88 mcg PO Q6AM 11/29/19 Levothyroxine Sodium [Synthroid 0.1 mg Tablet] 0.1 mg PO Q6AM 11/29/19 Lisinopril 20 mg PO DAILY 11/29/19 Metformin HCl [Glucophage 500 mg Tablet] 1,000 mg PO BIDACBS 11/29/19 Metoprolol Tartrate [Lopressor 25 mg Tablet] 12.5 mg PO BID 11/29/19 History of Present Illiness History of Present Illness: ROSEMARY MILLAN is a 54 year old male with history of splenectomy due to Hodgkin's disease, thyroidectomy, history of Lyme's disease twice, hypertension, diabetes mellitus, hyperlipidemia came to the emergency room with complaints of not feeling well since yesterday followed by abdominal pain nausea vomiting started this morning. He does not have any bowel movement for the last couple of days and he has history of constipation. Came to the emergency room with abo ve complaints in the emergency room CT scan was done found to have a small bowel obstruction. Medical consult was called for admission and a surgical consult will be requested by the ER physician. Hospital Course Hospital Course: 54 year old male with history of splenectomy due to Hodgkin's disease, thyroidectomy, history of Lyme's disease twice, hypertension, diabetes mellitus, hyperlipidemia came to the emergency room with complaints of not feeling well since yesterday followed by abdominal pain nausea vomiting started this morning. He does not have any bowel movement for the last couple of days and he has history of constipation. Came to the emergency room with above complaints in the emergency room CT scan was done found to have a small bowel obstruction. Medical consult was called for admission and a surgical consult will be requested by the ER physician. 11/[id number]-old male admitted with history of abdominal pain and a CT scan shows small bowel obstruction surgical consult was done. The recommendation today is to remove the NG tube and allow him to have a clear liquids. Patient is doing well. Abdominal pain is resolving. Patient was reevaluated by Dr. Sanders, he cleared him to go home. Physical Exam Vital Signs: Temp Pulse Resp BP Pulse Ox 98.3 F 91 18 154/86 H 97 11/30/19 14:17 11/30/19 14:17 11/30/19 14:17 11/30/19 14:17 11/30/19 14:17 Intake & Output 11/30/19 12/01/19 12/02/19 06:59 06:59 06:59 Intake Total 2000 1000 Output Total 1100 Balance 900 1000 Weight 93 kg General appearance: PRESENT: no acute distress, well-developed Head exam: PRESENT: atraumatic Eye exam: PRESENT: PERRLA Teeth exam: PRESENT: poor dentation Neck exam: PRESENT: lymphadenopathy Respiratory exam: PRESENT: decreased breath sounds Cardiovascular exam: PRESENT: RRR. ABSENT: diastolic murmur, rubs, systolic murmur GI/Abdominal exam: PRESENT: soft, other - Sluggish bowel sounds. ABSENT: distended, guarding, mass, organolmegaly, rebound, tenderness Rectal exam: PRESENT: deferred Extremities exam: PRESENT: full ROM. ABSENT: calf tenderness, clubbing, pedal edema Neurological exam: PRESENT: alert, awake, oriented to person, oriented to place, oriented to time, oriented to situation, CN II-XII grossly intact. ABSENT: motor sensory deficit Psychiatric exam: PRESENT: appropriate affect, normal mood. ABSENT: homicidal ideation, suicidal ideation Results Laboratory Results: WBC 11.0 10^3/uL (4.0-10.5) H 11/30/19 06:00 RBC 4.61 10^6/uL (4.35-5.55) 11/30/19 06:00 Hgb 14.0 g/dL (13.5-17.0) 11/30/19 06:00 Hct 40.6 % (37.9-51.0) 11/30/19 06:00 MCV 88 fl (80-97) 11/30/19 06:00 MCH 30.3 pg (27.0-33.4) 11/30/19 06:00 MCHC 34.5 g/dL (32.0-36.0) 11/30/19 06:00 RDW 14.5 % (11.5-14.0) H 11/30/19 06:00 Plt Count 290 10^3/uL (150-450) 11/30/19 06:00 Lymph % (Auto) 27.3 % (13-45) 11/30/19 06:00 [place] % (Auto) 10.2 % (3-13) 11/30/19 06:00 Eos % (Auto) 2.6 % (0-6) 11/30/19 06:00 Baso % (Auto) 0.9 % (0-2) 11/30/19 06:00 Absolute Neuts (auto) 6.5 10^3/uL (1.7-8.2) 11/30/19 06:00 Absolute Lymphs (auto) 3.0 10^3/uL (0.5-4.7) 11/30/19 06:00 Absolute Monos (auto) 1.1 10^3/uL (0.1-1.4) 11/30/19 06:00 Absolute Eos (auto) 0.3 10^3/uL (0.0-0.6) 11/30/19 06:00 Absolute Basos (auto) 0.1 10^3/uL (0.0-0.2) 11/30/19 06:00 Seg Neutrophils % 59.0 % (42-78) 11/30/19 06:00 Sodium 135.3 mmol/L (137-145) L 11/30/19 06:00 Potassium 4.2 mmol/L (3.6-5.0) 11/30/19 06:00 Chloride 106 mmol/L (98-107) 11/30/19 06:00 Carbon Dioxide 24 mmol/L (22-30) 11/30/19 06:00 Anion Gap 5 (5-19) 11/30/19 06:00 BUN 17 mg/dL (7-20) 11/30/19 06:00 Creatinine 0.60 mg/dL (0.52-1.25) 11/30/19 06:00 Est GFR ( Amer) > 60 (>60) 11/30/19 06:00 Est GFR (MDRD) Non-Af > 60 (>60) 11/30/19 06:00 Glucose 110 mg/dL (75-110) 11/30/19 06:00 POC Glucose 126 mg/dL (70-110) H 11/30/19 10:32 Hemoglobin A1c % 6.6 % (4.7-6.0) H 11/30/19 06:00 Calcium 9.2 mg/dL (8.4-10.2) 11/30/19 06:00 Magnesium 1.8 mg/dL (1.6-2.3) 11/30/19 06:00 Total Bilirubin 0.6 mg/dL (0.2-1.3) 11/30/19 06:00 Direct Bilirubin 0.0 mg/dL (0.0-0.4) 11/30/19 06:00 Neonat Total Bilirubin Not Reportable 11/30/19 06:00 Neonat Direct Bilirubin Not Reportable 11/30/19 06:00 Neonat Indirect Bili Not Reportable 11/30/19 06:00 AST 22 U/L (17-59) 11/30/19 06:00 ALT 21 U/L (<50) 11/30/19 06:00 Alkaline Phosphatase 39 U/L (38-126) 11/30/19 06:00 Total Protein 5.9 g/dL (6.3-8.2) L 11/30/19 06:00 Albumin 3.4 g/dL (3.5-5.0) L 11/30/19 06:00 Triglycerides 103 mg/dL (<150) 11/30/19 06:00 Cholesterol 121.41 mg/dL (0-200) 11/30/19 06:00 LDL Cholesterol Direct 90 mg/dL (<100) 11/30/19 06:00 VLDL Cholesterol 21.0 mg/dL (10-31) 11/30/19 06:00 HDL Cholesterol 30 mg/dL (>40) L 11/30/19 06:00 Lipase 85.9 U/L (23-300) 11/30/19 06:00 TSH 0.14 uIU/mL (0.47-4.68) L 11/30/19 06:00 Urine Color MAN 11/29/19 12:30 Urine Appearance CLOUDY 11/29/19 12:30 Urine pH 7.0 (5.0-9.0) 11/29/19 12:30 Ur Specific [place] 1.018 11/29/19 12:30 Urine Protein 100 mg/dL (NEGATIVE) H 11/29/19 12:30 Urine Glucose (UA) NEGATIVE mg/dL (NEGATIVE) 11/29/19 12:30 Urine Ketones NEGATIVE mg/dL (NEGATIVE) 11/29/19 12:30 Urine Blood NEGATIVE (NEGATIVE) 11/29/19 12:30 Urine Nitrite NEGATIVE (NEGATIVE) 11/29/19 12:30 Urine Bilirubin NEGATIVE (NEGATIVE) 11/29/19 12:30 Urine Urobilinogen NEGATIVE mg/dL (<2.0) 11/29/19 12:30 Ur Leukocyte Esterase NEGATIVE (NEGATIVE) 11/29/19 12:30 Urine WBC (Auto) 4 /HPF 11/29/19 12:30 Urine RBC (Auto) 3 /HPF 11/29/19 12:30 U Hyaline Cast (Auto) 103 /LPF 11/29/19 12:30 Urine Bacteria (Auto) TRACE /HPF 11/29/19 12:30 Squamous Epi Cells Auto 2 /HPF 11/29/19 12:30 Calcium Oxalate Cr Auto FEW /HPF 11/29/19 12:30 Urine Mucus (Auto) MANY /LPF 11/29/19 12:30 Urine Ascorbic Acid NEGATIVE (NEGATIVE) 11/29/19 12:30 Influenza A (Rapid) NEGATIVE (NEGATIVE) 11/29/19 12:22 Influenza B (Rapid) NEGATIVE (NEGATIVE) 11/29/19 12:22 Impressions: Abdomen/Pelvis CT 11/29/19 00:00 IMPRESSION: 1. Findings as detailed above are consistent with a small bowel obstruction. The point of transition is located in the mid abdomen (image 72 of series 3 and image 37 of series 601). 2. Other findings as detailed above. Acute Abdomen Series 11/29/19 11:57 IMPRESSION: Probable ileus with scattered air-fluid levels. Minimal small- bowel distention. Partial small bowel obstruction or early small bowel obstruction cannot be excluded. No free air. Abdomen X-Ray 11/30/19 07:00 IMPRESSION: Nasogastric tube in place. Stomach and small bowel are decompressed Oral contrast given for CT yesterday is now in the colon Plan Plan of Treatment: Patient is advised to follow-up with Dr. Sanders as an outpatient in 3 to 5 days. Patient agreed with the discharge plan. Time Spent: Greater than 30 Minutes Stroke Is this a Stroke Patient?: No Acute Heart Failure - Is this a Heart Failure Patient?: No
[2019-12-01] MEDS ORDERED: (PENDING PHARMACY ID) (Lisinopril [Lisinopril] 20 MG) PO SCH (10:00)
== END 2019-11-30 14:48 | disposition home or self-care (01) | DRG 389 ==
LOC: ER 11:12 → EH 19:02 → 4S 22:45
PROVIDERS: ADMIT Internal Medicine; ATTEND Internal Medicine
DX: K56.51 Intestinal adhesions [bands], with partial obstruction (principal); C81.90 Hodgkin lymphoma, unspecified, unspecified site; K56.7 Ileus, unspecified; I10 Essential (primary) hypertension; E11.8 Type 2 diabetes mellitus with unspecified complications; E03.9 Hypothyroidism, unspecified; Z90.81 Acquired absence of spleen; Z79.84 Long term (current) use of oral hypoglycemic drugs; Z79.899 Other long term (current) drug therapy
CPT/HCPCS: 36415; 74019; 74022; 74177; 80053; 80061; 81001; 82962; 83036; 83690; 83735; 84443; 85025; 87804; 96361; 96372; 96374; 96375; 99285; C9113; J0360; J0500; J1170; J1644; J1885; J2250; J2405; J2704; J3010; J3490; J7030; J7120